=== PATIENT | male | born 1975 | race African-American/Black ===

== ENCOUNTER 2017-10-09 14:34 | Emergency (ER) | payer OTHER ==
[2017-10-09] MEDS ORDERED: LOSA25TA50 PO (14:42)
[2017-10-09] MEDS ORDERED: METF-420 PO (14:42)
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
[2017-10-09 16:09] VITALS: BP 142/111
[2017-10-09] MEDS ORDERED: IBUPROFEN 600 MG TAB PO ONE (16:10)
[2017-10-09] MEDS ORDERED: ACETAMINOPHEN 500 MG TAB PO ONE (16:10)
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
== END 2017-10-09 16:30 | disposition home or self-care (01) ==
LOC: ER 14:57
DX: S80.02XA Contusion of left knee, initial encounter (principal); V64.5XXA Driver of heavy transport vehicle injured in collision with heavy transport vehicle or bus in traffic accident, initial encounter; Y99.0 Civilian activity done for income or pay
CPT/HCPCS: 73564; 99283

== ENCOUNTER → 2017-10-09 | Outpatient (CLI) | payer OTHER ==
[~2017-10-09] MED LIST: LOSA25TA50 PO; METF-420 PO
== END ==
LOC: AMB 13:36
PROVIDERS: ATTEND Nurse Practitioner
DX: M25.562 Pain in left knee (principal); V44.5XXA Car driver injured in collision with heavy transport vehicle or bus in traffic accident, initial encounter; Y92.411 Interstate highway as the place of occurrence of the external cause
CPT/HCPCS: A0425; A0429